=== PATIENT | female | born 1970 | race Two or more races ===

== ENCOUNTER 2023-07-13 21:22 | Emergency (ER) | payer MEDICAID ==
[~2023-07-13] VITALS: Ht 172.7 cm; Wt 72.6 kg
[2023-07-13] MEDS ORDERED: ACETAMINOPHEN ES 500 MG TABLET ONE (23:06)
[2023-07-13] MEDS ORDERED: IBUPROFEN 600 MG TABLET ONE (23:07)
[2023-07-13] MEDS: ACETAMINOPHEN ES 500 MG TABLET PO ONE (23:07)
[2023-07-13] MEDS: CYCLOBENZAPRINE 10 MG TABLET PO ONE (23:07)
[2023-07-13] MEDS ORDERED: CYCLOBENZAPRINE 10 MG TABLET ONE (23:07)
[2023-07-13] MEDS: IBUPROFEN 600 MG TABLET PO ONE (23:07)
[2023-07-13] MEDS ORDERED: CYCL5TAB PO (23:49)
[2023-07-13] MEDS ORDERED: ACET-2605 PO (23:49)
[2023-07-13] MEDS ORDERED: IBUP-1955 PO (23:49)
[2023-07-13 23:59] VITALS: BP 132/87; TEMP 97.9; O2SAT 97
== END 2023-07-13 23:59 | disposition home or self-care (01) ==
LOC: ER 21:30
DX: R07.81 Pleurodynia (principal); R11.0 Nausea; R51.9 Headache, unspecified; V43.62XA Car passenger injured in collision with other type car in traffic accident, initial encounter; Y93.89 Activity, other specified; Y92.488 Other paved roadways as the place of occurrence of the external cause; Y99.8 Other external cause status
CPT/HCPCS: 70450-TC; 71111-TC